=== PATIENT | female | born 1995 | race Caucasian/White ===

== ENCOUNTER 2017-04-14 17:40 | Emergency (ER) | payer BC ==
[2017-04-14 17:55] VITALS: BP 120/80
--- NOTE | 2017-04-14 18:16 | UC ---
Cardiac HPI - HPI Summary HPI Summary: chest tightness x 1 day difficulty breathing , no cough, no cold sx, no fever, no chills, + heart palpitation - History of Current Complaint Chief Complaint: UCChestPain Stated Complaint: CHEST DISCOMFORT Time Seen by Provider: 04/14/17 17:45 Hx Obtained From: Patient Hx Last Menstrual Period: 03/17/17 Onset/Duration: Gradual Onset, Lasting Days - 1, Resolved Timing: Intermittent Episodes Lasting: - 1 day Initial Severity: Moderate Current Severity: Moderate Pain Intensity: 0 Chest Pain Location: Mid Sternal Character: Fast, Irregular, Pounding Aggravating Factor(s): Nothing Alleviating Factor(s): Nothing Associated Signs & Symptoms: Positive: SOB, Palpitations. Negative: Chest Pain , Vision Changes, Anxiety, Recent Stress, Headaches, Numbness, Tingling, Weakness, Dizziness, Swelling, Syncope, Fever, Diaphoresis, Nausea/Vomiting, Cough, Hemoptysis, Back Pain, Abdominal Pain, Calf Pain/Swelling - Allergy/Home Medications Allergies/Adverse Reactions: Allergies Allergy/AdvReac Type Severity Reaction Status Date / Time cefprozil [From Cefzil] Allergy Hives Verified 04/14/17 17:55 polymyxin B [From Polytrim] Allergy Hives Verified 04/14/17 17:55 trimethoprim [From Polytrim] Allergy Hives Verified 04/14/17 17:55 Home Medications: Home Medications NK [No Home Medications Reported] 04/14/17 [History Confirmed 04/14/17] Oral Contraceptive 1 tab PO DAILY 04/14/17 [History] PMH/Surg Hx/FS Hx/Imm Hx - Additional Past Medical History Additional PMH: Anemia - Surgical History Surgical History: Yes Surgery Procedure, Year, and Place: wisdom teeth - Family History Known Family History: Negative: Diabetes - Social History Alcohol Use: Occasionally Substance Use Type: None Smoking Status (MU): Never Smoked Tobacco Review of Systems Constitutional: Negative Skin: Negative Eyes: Negative ENT: Negative Respiratory: Shortness Of Breath Cardiovascular: Palpitations Gastrointestinal: Negative Is Patient Immunocompromised?: No All Other Systems Reviewed And Are Negative: Yes Physical Exam Triage Information Reviewed: Yes Appearance: Well-Appearing, No Pain Distress, Well-Nourished Vital Signs: Initial Vital Signs Temp 98.8 F 04/14/17 17:52 Pulse 76 04/14/17 17:52 Resp 16 02/19/18 17:52 BP 120/80 04/14/17 17:52 Pulse Ox 100 04/14/17 17:52 Vital Signs Reviewed: Yes Eye Exam: Normal Eyes: Positive: Conjunctiva Clear ENT: Positive: Normal ENT inspection, Hearing grossly normal, Pharynx normal Neck exam: Normal Neck: Positive: Supple, Nontender, No Lymphadenopathy Respiratory: Positive: Chest non-tender, Lungs clear, Normal breath sounds, No respiratory distress Cardiovascular: Positive: RRR, No Murmur, Pulses Normal Abdominal Exam: Normal Abdomen Description: Positive: Nontender, Soft. Negative: CVA Tenderness (R), CVA Tenderness (L), Distended, Guarding Bowel Sounds: Positive: Present Musculoskeletal Exam: Normal Skin Exam: Normal Diagnostics - EKG Cardiac Rate: NL Cardiac Rhythm: Sinus: Normal Ectopy: None ST Segment: Normal - Clinical Impression Provider Diagnoses: heart palpitation Discharge - Discharge Plan Condition: Stable Disposition: HOME Patient Education Materials: Heart Palpitations (ED) Additional Instructions: normal EKG, normal vitals, normal exam follow up with your pcp if cont. to have symptoms
== END 2017-04-14 18:18 | disposition home or self-care (01) ==
LOC: UCCORT 17:40
DX: R00.2 Palpitations (principal)
CPT/HCPCS: 93005; 99202; G0463